=== PATIENT | male | born 1935 | race Caucasian/White ===

== ENCOUNTER 2017-03-03 07:08 | Day surgery (SDC) | payer MEDICARE, OTHER ==
[~2017-03-03] VITALS: Ht 170.2 cm; Wt 99.6 kg
[2017-03-10] MEDS ORDERED: LASIX DPS20 MG PO (17:27)
[2017-03-10] MEDS ORDERED: ALDACTONE DPS25 MG PO (17:27)
[2017-03-10] MEDS ORDERED: LIPITOR DPS10 MG PO (17:27)
[2017-03-10] MEDS ORDERED: PRILOSEC DPS20 MG PO (17:27)
[2017-03-10] MEDS ORDERED: SYNTHROID DPS0.05 MG PO (17:28)
[2017-03-10] MEDS ORDERED: ZESTRIL DPS40 MG PO (17:28)
[2017-03-10] MEDS ORDERED: BACTRIM DS DPS1 TAB PO (17:29)
[2017-03-10] MEDS ORDERED: METHOTREXATE2.5 MG PO (17:30)
[2017-03-10] MEDS ORDERED: DELTASONE DPS20 MG PO (17:31)
== END 2017-03-03 11:30 | disposition home or self-care (01) ==
LOC: RAD.S 07:08
PROC: 0BBF3ZX Excision of Right Lower Lung Lobe, Percutaneous Approach, Diagnostic (ICD-10-PCS; principal; 2017-03-03)
DX: J84.10 Pulmonary fibrosis, unspecified (principal); I28.8 Other diseases of pulmonary vessels; J85.0 Gangrene and necrosis of lung; Z79.899 Other long term (current) drug therapy; Z79.82 Long term (current) use of aspirin

== ENCOUNTER 2017-03-07 18:50 | Inpatient (IN) | payer MEDICARE, OTHER ==
[~2017-03-07] VITALS: Ht 170.2 cm; Wt 101.1 kg
--- NOTE | ~2017-03-07 | HP ---
ADMIT: 03/07/2017 RM/LOC: 426 [facility] MR#: [id number] 2620 [facility] [address] [place], [place] [address] MARK CRAMER [address] [place] [address] History and Physical SEX: M AGE: 81 : 1935 DATE OF SERVICE: CHIEF COMPLAINT: Hemoptysis. HISTORY OF PRESENT ILLNESS: Mr. Cramer is a very pleasant 81-year-old man, who has a past medical history significant for history of coronary artery disease status post CABG, history of gallstone pancreatitis complicated by a PE, as well as hypertension, hyperlipidemia and GERD, who presented to the ER with a complaint of not feeling well. Apparently, he has not been feeling well for about one month. He has had some hemoptysis. 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 He reports that today apparently, his PCP had called and may have said he just was not feeling as well and therefore, his PCP was concerned and sent him down for a CTA. Apparently, his CTA was not of the best quality, but they did not see any obvious PE's. Did see his diffuse bilateral lower lobe infiltrates and felt he warranted admission for further evaluation and treatment. The patient reports he has not had any new lower extremity edema that he has noted, and otherwise has not really felt necessarily short of breath, he just has not felt well. He denies any fevers, but does report he has had some chills. Sounds like his appetite is down. PAST MEDICAL HISTORY: Significant for: 1. History of hernia repair as a child. 2. History of coronary artery disease, status post CABG in 2000. 3. Status post cholecystectomy in 2011. 4. Status post gallstone pancreatitis in 2013. 5. Hypertension. 6. Hyperlipidemia. 7. GERD. 8. History of PE after his hospitalization for gallstone pancreatitis. 9. History of basal cell carcinoma of his nose. 10.Hypothyroidism. MEDICATIONS: 1. Lasix 20 mg p.o. daily. 2. Spironolactone 25 mg p.o. daily. 3. Atorvastatin 10 mg p.o. daily. 4. Omeprazole 20 mg p.o. daily. 5. Levothyroxine 50 mcg p.o. daily. 6. Lisinopril 40 mg p.o. daily. ALLERGIES: NIACIN. SOCIAL HISTORY: He does not smoke or use any significant alcohol. He is and has a very supportive family. FAMILY HISTORY: Relatively noncontributory. ADMIT: 03/07/2017 RM/LOC: 426 [facility] MR#: [id number] [address] [address] [address] CRAMER [address] [place] [address] History and Physical SEX: M AGE: 81 : 1935 REVIEW OF SYSTEMS: Obtained, was otherwise essentially negative. PHYSICAL EXAMINATION: GENERAL: He is alert and oriented. He is in no apparent distress. He is a little pale. HEENT: Pupils are round and reactive. Oropharynx, dry mucous membranes. NECK: Supple. HEART: Normal rate with a regular rhythm without a murmur. LUNGS: Have few crackles and rales on the left. Diminished breath sounds in the right lower lobe. ABDOMEN: Obese, soft. Bowel sounds are present. EXTREMITIES: Have trace lower extremity edema. ASSESSMENT AND PLAN: 1. Hemoptysis. 2. 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 3. History of coronary artery disease. 4. History of pulmonary embolism. 5. Gastroesophageal reflux disease. At this time, we will go ahead and admit the patient. We will monitor him overnight. We will ask Cardiology and Pulmonary to see. He received some Solu-Medrol, magnesium, and a DuoNeb downstairs and felt better. We will continue the DuoNeb for now. We will go ahead and check H and H q.8h x3. We will also get some labs in the morning. Otherwise, the patient is relatively stable. I did spend 35 minutes in the admission and evaluation of this patient. Gardenia Moreno MD/ kayla JOB #: [id number] CC: Gardenia Moreno, Attending Physician Gardenia Moreno, Family Physician
--- NOTE | 2017-03-08 02:34 | ER ---
ADMIT: 03/07/2017 RM/LOC: 426 [facility] MR#: [id number] 2620 [facility] [address] [place] [phone] MARK CRAMER [address] [place] [address] Emergency Room Report SEX: M AGE: 81 : 1935 DATE: 03/07/2017 CHIEF COMPLAINT: Hemoptysis. HISTORY OF PRESENT ILLNESS: The patient is an 81-year-old male with presumed diagnosis of James's granulomatosis, status post right lung biopsy on March [address] Ajay Greer, complicated by postop bleeding and increased hemoptysis. The patient had previous head to mid-thigh PET scan on February 16, that showed no hypermetabolic lesions, just pulmonary nodules. The patient admits to 10-pound weight loss, increasing anorexia. Denies any fevers, chills, nausea, or vomiting. Quit smoking over 40 years ago after 20-pack year history. PAST MEDICAL HISTORY: ILLNESSES: Coronary artery disease, status post CABG x4 in 2000, [facility]; CHF; hypertension; hyperlipidemia; GERD; COPD; hypothyroidism; low vitamin D; basal cell carcinoma; post-ERCP pulmonary emboli, treated with Xarelto approximately 6 years ago and cholecystectomy; inguinal herniorrhaphy; left cataract extraction; childhood finger tendon repair. ALLERGIES: NONE. MEDICATIONS: Please see nurse's MAR. SOCIAL HISTORY: . Retired. Previous smoker, quit over 40 years ago. No illicit drugs or alcohol. FAMILY HISTORY: Positive for pulmonary emboli in brother and niece. No sudden , aneurysms, or dissections. REVIEW OF SYSTEMS: A 12-point review of systems negative for all other systems, illnesses, or operations except as outlined above. PHYSICAL EXAMINATION: VITAL SIGNS: Temperature 97.4, pulse 87, respirations 18, BP 133/62, SaO2 of 91% on room air. Weight 100.1 kilos. GENERAL: Nontoxic, non-diaphoretic without jaundice or icterus. LUNGS: Breath sounds equal, diminished with faint expiratory wheeze. HEART: Regular rate and rhythm without murmur, gallop, or edema. ABDOMEN: Obese, nontender, nondistended without mass or megaly. Bowel sounds hypoactive. EXTREMITIES: No evidence of Homans sign, synovitis, or dermatitis. NEURO: EOMI. PERRLA. No evidence of drift, dysarthria, or ataxia. Gait normal. MENTAL STATUS: Alert, oriented, and cooperative without delusions, hallucinations, or abnormal thought content. MEDICAL DECISION MAKING: CTA chest; negative for PE; cavitary lesion noted in right lower lobe biopsy site, new since chest x-ray. Chest x-ray, unchanged from previous. WBC 11.5, hemoglobin 13.4, CRP 13.6, lactic 0.8, troponin less ADMIT: 03/07/2017 RM/LOC: 426 [facility] MR#: [id number] [address] [place] [phone] MARK CRAMER [address] [place] [address] Emergency Room Report SEX: M AGE: 81 : 1935 than 0.015, INR 1.07, BNP 685. EKG; sinus rhythm with APCs and nonspecific changes, QTc of 521 milliseconds. No old EKG for comparison. The patient was treated with DuoNeb aerosol x2, magnesium 2 g IV piggyback, and Solu-Medrol 125 mg IV push with minimal improvement. Discussed findings with Dr. Moreno, who agreed to admit and requests floor to call for orders. DIAGNOSES: 1. Hemoptysis likely related to James's granulomatosis. 2. Chronic obstructive pulmonary disease. 3. Previous pulmonary embolism post-ERCP resulting in cholecystectomy. 4. Coronary artery disease, status post coronary artery bypass graft. RECOMMENDATION: Admit inpatient telemetry for Dr. Moreno. ADMISSION/DISCHARGE CONDITION: Stable. CODE STATUS: The patient is a full code. Allen Renee MD/ kayla JOB #: [id number] CC: Gardenia Moreno MD, Attending Physician Gardenia Moreno MD, Family Physician MD Samuel Elizabeth PA-C
--- NOTE | 2017-03-09 08:14 | CO ---
ADMIT: 03/07/2017 RM/LOC: 426 [facility] MR#: [id number] 26[address] [facility] [address] [place], [place] [address] MARK CRAMER [address] [place] [address] Consultation SEX: M AGE: 81 : 1935 DATE OF CONSULTATION: 03/08/2017 ATTENDING PHYSICIAN: Gardenia Moreno CONSULTING PHYSICIAN: García Garrison MD HISTORY OF PRESENT ILLNESS: Mr. Cramer is a very pleasant 81-year-old white male, former smoker, quit a number of years ago, does have previous history of coronary artery disease, with previous bypass in 2000. Also has previous history of cholelithiasis with acute pancreatitis, with previous cholecystectomy. His course was complicated at that time by history of pulmonary embolism. Additionally, he has hypertension, hyperlipidemia, and gastroesophageal reflux. He initially presented about a month ago with some minimal hemoptysis with just minimal amount of blood in the phlegm and mucus. No massive or major hemoptysis noted. Additionally, he stated he "was not feeling well." Very nonspecific, but noted that he would be more short of breath, mowing the lawn. Stated that a couple months ago, he was able to mow the lawn in an hour and 15 minute without stopping. Then, he had stopped 2 or 3 times while mowing his lawn. Went in to see his primary care physician. CT scan was performed followed by PET scan. Showed right lower lobe mass like lesion with some cavitation. He underwent CT-guided needle biopsy, and biopsy results were consistent with neutrophilic vasculitis with necrosis and some fibrotic area consistent with James's granulomatosis. He was admitted currently with continued complaints. He went in to his primary care office, and was concerned for possible pulmonary embolism. He was sent from [facility] to [place]. He underwent a CT angiogram. It did not show any pulmonary emboli, but did show the right lower lobe infiltrated mass like area with cavitation. He was admitted for further care and evaluation, seen in consultation. Currently, denies fevers, chills, or sweats. Outside of the minimal amount of hemoptysis, he has not had any hematuria. No sinus problems. No nosebleeds. No arthropathies or joint pain. PAST MEDICAL HISTORY: Significant for history of coronary artery disease with bypass in 2000. Also had cholecystectomy in 2011. He had a pleural effusion on the right side at that time. He has a history of pulmonary embolism when he was hospitalized with gallstone pancreatitis. ADMIT: 03/07/2017 RM/LOC: 426 [facility] MR#: [id number] [address] [place] [id number] [address] CRAMER [address] [place] [address] Consultation SEX: M AGE: 81 : 1935 He has history of hypertension, hyperlipidemia, gastroesophageal reflux, and hypothyroidism. HOME MEDICATIONS: Reviewed in electronic medical records include Lasix 20 mg daily, spironolactone 25 mg daily, atorvastatin 10 mg daily, omeprazole 40 mg daily, levothyroxine 50 mcg daily, lisinopril 40 mg daily. ALLERGIES: HE HAS LISTED MEDICAL ALLERGY TO NIACIN. SOCIAL HISTORY: He is , lives at home with his . Former smoker, quit a number of years ago. Normally does not wear oxygen at night. FAMILY HISTORY: Noncontributory, though his father of a stroke in his 70s, mother had coronary artery disease, and in her 80s. He also has a sister with coronary artery disease, had bypass surgery in his 60s. REVIEW OF SYSTEMS: As above. All organ systems reviewed significant positives and negatives discussed above. Additionally, he had some decrease in his appetite recently, but no significant weight loss. Does have occasional swelling of the lower extremities by the end of the day, but does take diuretics as mentioned above. PHYSICAL EXAMINATION: VITAL SIGNS: He was currently afebrile, blood pressure is 130s over 60s. Weight was 100 kg, oxygen saturation on room air was 91% to 92%. On 2 L, he is 97%. GENERAL: He appeared well, in no obvious respiratory distress at rest. HEENT: Shows head to be normocephalic, atraumatic. Pupils are equal and reactive. Nares patent. No evidence of epistaxis. Posterior hypopharynx is clear of acute exudates or lesions. NECK: Supple without adenopathy. Trachea midline. CHEST: Reveals normal configuration. He has crackles in the right lung base on deep breathing. Minimal cough. Left lung was clear. HEART: Regular, distant, no murmur. ABDOMEN: Obese, soft, nondistended, and nontender without significant organomegaly or masses. EXTREMITIES: Showed no clubbing, cyanosis, and only a trace of lower extremity edema around the ankles. No focal neurologic deficits noted. He was awake, alert, and oriented x4. Mood and affect were appropriate. As mentioned above, CT angiogram of the chest was negative for acute pulmonary embolism. ASSESSMENT: He is admitted with hemoptysis, failure to thrive, and generalized weakness. His hemoptysis is very minimal, namely blood-streaked phlegm and mucus. He has right lower lobe lung mass with some cavitation, recent CT-guided ADMIT: 03/07/2017 RM/LOC: 426 [facility] MR#: [id number] [address] [place] [id number] [address] CRAMER [address] [place] [address] Consultation SEX: M AGE: 81 : 1935 needle biopsy shows granulomatosis with polyangiitis (James's granulomatosis). It is not life-threatening disease and I think at this time, we can start treatment with high dose prednisone, and for more convenience for him can probably start out with methotrexate once per week. Generally, we would start prednisone 100 mg/kg per day up to 60 mg, and given his weight of 100 kilos, we will start him on 60 mg daily. We should maintain this dose for a couple months, and if he is clinically stable, then we can certainly taper him off the prednisone. We will potentially do an every other day dosing for up to 4 to 8 months depending on his clinical response. Additionally, we will start him on methotrexate once a week. General recommendation will restart around 20 mg per week. Again, after he is stabilized. We see improvement radiographically and clinically. Could reduce the dose to 12-1/2 mg per week and probably maintain that indefinitely. Because of immunosuppression, would recommend PCP prophylaxis with Bactrim DS one tablet Mondays, Wednesdays, and Fridays. We would like to probably obtain a followup scan in about 3 months looking for improvement radiographically as long as he is doing well clinically. History of coronary artery disease. No evidence of any progression of the disease. There are various other medical problems listed above including hypertension, hyperlipidemia, and hypothyroidism. Additionally, it was noted that his blood glucose levels were high. I am going to check a hemoglobin A1c as we may need to put him on treatment because of steroids may certainly cause his blood sugars to be elevated. Finally, I would also recommend checking a CBC, and CMP to assess liver and renal function sometime in the next couple weeks to make sure he is not having problems with either steroid or the methotrexate. We will follow here in the hospital with you and further recommendations to follow. García Garrison MD/ kayla JOB #: [id number] CC: Gardenia Moreno, Attending Physician Gardenia Moreno, Family Physician
[2017-03-10] MEDS ORDERED: PRILOSEC DPS20 MG PO (17:27)
[2017-03-10] MEDS ORDERED: ALDACTONE DPS25 MG PO (17:27)
[2017-03-10] MEDS ORDERED: LIPITOR DPS10 MG PO (17:27)
[2017-03-10] MEDS ORDERED: LASIX DPS20 MG PO (17:27)
[2017-03-10] MEDS ORDERED: ZESTRIL DPS40 MG PO (17:28)
[2017-03-10] MEDS ORDERED: SYNTHROID DPS0.05 MG PO (17:28)
[2017-03-10] MEDS ORDERED: BACTRIM DS DPS1 TAB PO (17:29)
[2017-03-10] MEDS ORDERED: METHOTREXATE2.5 MG PO (17:30)
[2017-03-10] MEDS ORDERED: DELTASONE DPS20 MG PO (17:31)
--- NOTE | 2017-03-21 07:53 | DS ---
ADMIT: 03/07/2017 RM/LOC: 426 [facility] MR#: [id number] [facility]#: [id number] 2620 [facility] [address] [place], [place] [address] MARK CRAMER [address] [place] [address] Discharge Summary SEX: M AGE: 81 : 1935 ADMISSION DATE: 03/07/2017 DISCHARGE DATE: 03/09/2017 DISCHARGE DIAGNOSES: 1. Hemoptysis. 2. New presumed diagnosis of James's granulomatosis. 3. History of hernia repair as a child. 4. History of coronary artery disease, status post CABG (coronary artery bypass graft) 2000. 5. History of cholecystectomy in 2011. 6. History of PE (pulmonary embolus) after hospitalization for gallstone pancreatitis. 7. Gastroesophageal reflux disease. 8. Hyperlipidemia. 9. Hypertension. 10.Hypothyroidism. HOSPITAL COURSE: The patient was admitted through the ER with hemoptysis. Overall, he was relatively stable. His hemoglobin and hematocrit were stable. I did ask Pulmonary to see him. They came by and saw him, and we started him on treatment for his presumed James's granulomatosis. He was feeling much better at the time of discharge and was not having any hemoptysis. He was taught how to check his blood sugars due to his borderline hyperglycemia and initiation of high-dose prednisone. His discharge medications are: 1. Prednisone 60 mg p.o. daily, dose to be determined by Dr. Zepeda. 2. Methotrexate 20 mg p.o. on Tuesdays. 3. Bactrim 1 tab p.o. Tuesday, Tuesday, Tuesday. 4. Lipitor 10 mg p.o. daily. 5. Protonix. 6. Synthroid 50 mcg p.o. daily. 7. Spironolactone 25 mg p.o. daily. 8. Lasix 20 mg p.o. daily. 9. Lisinopril 40 mg p.o. daily. He is to check his blood sugars once daily alternating the times and take to his appointment with Samuel Lyles. He is to follow up with Samuel Lyles in one week and Dr. Zepeda as he deems appropriate. Gardenia Moreno MD/ enrique JOB #: [id number] CC: Gardenia Moreno MD, Attending Physician Gardenia Moreno MD, Family Physician
== END 2017-03-09 12:29 | disposition home or self-care (01) | DRG 543 ==
LOC: ER 18:50 → 4PCU 20:45
PROVIDERS: ADMIT Internal Medicine
DX: M31.30 Wegener's granulomatosis without renal involvement (principal); R04.2 Hemoptysis; I11.0 Hypertensive heart disease with heart failure; I50.9 Heart failure, unspecified; I25.10 Atherosclerotic heart disease of native coronary artery without angina pectoris; E78.5 Hyperlipidemia, unspecified; R73.9 Hyperglycemia, unspecified; K21.9 Gastro-esophageal reflux disease without esophagitis; J44.9 Chronic obstructive pulmonary disease, unspecified; E03.9 Hypothyroidism, unspecified; Z85.828 Personal history of other malignant neoplasm of skin; Z86.711 Personal history of pulmonary embolism; Z95.1 Presence of aortocoronary bypass graft; Z87.891 Personal history of nicotine dependence; Z82.49 Family history of ischemic heart disease and other diseases of the circulatory system